=== PATIENT | female | born 1940 | race Caucasian/White ===

== ENCOUNTER → 2016-02-15 | Outpatient (CLI) | payer MEDICARE ==
--- NOTE | 2016-02-18 10:37 | MM ---
Reason for exam: additional evaluation requested from abnormal screening. Last mammogram was performed less than 1 month ago. History: Patient is postmenopausal and is nulliparous. Benign stereotactic core biopsy of the left breast, April 15, 2002. Excisional biopsy of the left breast, February 10, 1997. Core biopsy of the left breast. Lumpectomy of the left breast. Physical Findings: Nurse did not find any significant physical abnormalities on exam. MG 3D Work Up W/Cad RT ML, spot compression CC, and spot compression MLO view(s) were taken of the right breast. Prior study comparison: February 06, 2016, bilateral MG screening mammo w CAD. January 10, 2015, bilateral MG screening mammo w CAD. Finding #1: There is a 9 mm equal density (isodense), microlobulated oval mass in the upper outer quadrant of the right breast. Finding #2: There are typically benign calcifications in the right breast. These results were verbally communicated with the patient and result sheet given to the patient on 02/15/16. ASSESSMENT: Incomplete: need additional imaging evaluation, BI-RAD 0 RECOMMENDATION: Ultrasound of the right breast.
--- NOTE | 2016-02-18 10:39 | USB ---
Reason for exam: additional evaluation requested from abnormal screening. History: Patient is postmenopausal and is nulliparous. Benign stereotactic core biopsy of the left breast, April 15, 2002. Excisional biopsy of the left breast, February 10, 1997. Core biopsy of the left breast. Lumpectomy of the left breast. US Breast Workup Limited RT Right breast ultrasound demonstrates a 0.3 x 0.4 x 0.3cm irregular, hyperechoic lesion at 10 o'clock. These results were verbally communicated with the patient and result sheet given to the patient on 02/15/16. ASSESSMENT: Suspicious, BI-RAD 4 RECOMMENDATION: Stereotactic core biopsy of the right breast. Called Dr. Brownlee with mammographic findings and has scheduled an appointment for the patient for 02/19/16 at 9:[address] Posadas. PRELIMINARY REPORT CALLED AND FAXED TO DR. POSADAS ON 02/18/16 AT 300/TP.
== END | disposition home or self-care (01) ==
LOC: RADMAMWWP 13:35
PROVIDERS: ATTEND Obstetrics & Gynecology
DX: R92.2 Inconclusive mammogram (principal); R92.8 Other abnormal and inconclusive findings on diagnostic imaging of breast
CPT/HCPCS: 77051; 76642; G0206; G0279

== ENCOUNTER → 2016-02-25 | Day surgery (SDC) | payer MEDICARE ==
[~2016-02-25] MED LIST: ALPRAZolam 0.25 MG TAB ONE; BACITRACIN OINT 1 EACH PACKET TOPICAL ONE; LIDOCAINE 1% INJ 10MG/ML (20 ML MDV) ONE; SODIUM BICARB 4% 5 ML VIAL (0.48 MEQ/ML) ONE
--- NOTE | 2016-02-25 16:11 | MM ---
EXAMINATION TYPE: MG stereo VAD BX RT DATE OF EXAM: 02/25/2016 3:24 PM COMPARISON: NONE CLINICAL HISTORY: Previous abnormal mammogram TECHNIQUE: Stereotactic guided core biopsy of right breast. FINDINGS: The procedure of stereotactic guided core biopsy was explained to the patient. Benefits, alternatives, and risks were discussed. An informed consent was then obtained. The [facility] pathway for biopsy was chosen. Shortness pathway was lateral approach. Dr. Cleveland performed the procedure. A vacuum assisted biopsy device was used to obtain 4 core samples. The patient tolerated the procedure well without any immediate complication. The patient was kept in the radiology department for short stay after the procedure and then discharged home in stable condition. Mass appears to be identified in specimen mammogram. Post procedure mammogram was ordered and performed. Post biopsy mammogram shows the clip to appear in satisfactory position relative to the targeted area of concern on the preprocedure images. IMPRESSION: SUCCESSFUL, UNCOMPLICATED STEREOTACTIC GUIDED CORE BIOPSY OF AREA OF CONCERN IN THE right BREAST, FULL PATHOLOGY RESULTS TO FOLLOW. 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 Recommendation Surgical consult of the right breast. KRISTEL
== END ==
LOC: RADMAMWWP 13:04
PROVIDERS: ATTEND Surgery
DX: R92.8 Other abnormal and inconclusive findings on diagnostic imaging of breast (principal); D05.11 Intraductal carcinoma in situ of right breast; Z88.6 Allergy status to analgesic agent; Z88.0 Allergy status to penicillin; Z88.7 Allergy status to serum and vaccine
CPT/HCPCS: 88305; 19081; A4648; J2001

== ENCOUNTER 2016-04-04 06:29 | Day surgery (SDC) | payer MEDICARE ==
[2016-04-03 10:17] VITALS: BMI 24.4
--- NOTE | 2016-04-04 04:54 | P.GSHP ---
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 No swellings in the armpit or neck Last mammogram on 02/06/16 and 01/10/2015 Last breast US on 02/15/16 Prior breast bx - open left breast bx in 2007 and 1997 Menarche at age -12 Menopause at age- 51 Age at 3 st child - NA nulliparous OCP use - None Hormonal supplementation- Premarin 2 yrs Family history of breast cancer - None Family history of ovarian cancer -None - Review of Systems Comment: Additionally reports: Constitutional: No fever, chills or rigors. No weight loss or loss of appetite. HEENT: No difficulty with hearing, vision and swallowing. Lymphatic: No axillary, inguinal and cervical swellings. Endocrine: No thyroid disorders. Denies history of diabetes. Respiratory: No chest pain, shortness of breath, and cough. No hemoptysis. Cardiovascular: No palpitations, irregular HR Gastrointestinal: Denies heartburn. No change in bowel habits. No nausea or vomiting. Genitourinary: No increase in urinary frequency or urgency. No hematuria. Musculoskeletal: No back pain, joint stiffness or pain. Neurologic: No history of seizure disorder and headaches. Psychiatric: Denies depression or anxiety . No suicidal ideation. Hematologic: Denies any abnormal mucosal bleeding or easy bruising. Past Medical History Past Medical History: Cancer, Osteoarthritis (OA) Additional Past Medical History / Comment(s): breast cancer History of Any Multi-Drug Resistant Organisms: None Reported Past Surgical History: Breast Surgery, Tonsillectomy Additional Past Surgical History / Comment(s): left breast biopsy Past Anesthesia/Blood Transfusion Reactions: No Reported Reaction Past Psychological History: No Psychological Hx Reported Smoking Status: Never smoker Past Alcohol Use History: None Reported Past Drug Use History: None Reported - Past Family History Mother Family Medical History: No Reported History Medications and Allergies Home Medications Medication Instructions Recorded Confirmed Type Acetaminophen Tab [Tylenol Tab] 250 mg PO DIRECTED PRN 04/03/16 04/03/16 History Allergies Allergy/AdvReac Type Severity Reaction Status Date / Time adhesive tape Allergy red Verified 04/03/16 10:09 skin,itching Influenza Virus Vaccines Allergy Itching,tavares Verified 04/03/16 10:09 h naproxen [From Aleve] Allergy Itching Verified 04/03/16 10:09 Penicillins Allergy Itching Verified 04/03/16 10:09 Surgical - Exam Patient is a 75-year-old female. Breast: Inspection/Palpation: no erythema, induration, tenderness, skin changes , abnormal secretions, or distinct masses (well healed left breast bx scar) and normal nipple appearance; No axillary , cervical or supraclavicular lymphadenopathy. Abdomen: Auscultation/Inspection/Palpation: no tenderness, hepatomegaly, or splenomegaly and non-distended and normal bowel sounds. Hernia: none palpated. Assessment and Plan (1) Breast cancer, right Status: Acute Plan: Assessment / Plan 1. Invasive ductal ca and DCIS - right breast upper outer quadrant 10 o clock 2. Two surgical options discussed : breast conservation surgery(lumpectomy with radiation) and simple mastectomy . 3. Patient elected to undergo lumpectomy 4. Wire localization lumpectomy discussed . Possibility of re-excision of breast tissue in case of positive margins were discussed 5. [place] lymph node bx with blue dye and radioactive tracer with possibility of axillary lymph node dissection if sentinel lymph node is positive for malignancy 6. Risks,benefits, potential complications including bleeding, infection, paresthesia along inner arm, skin necrosis from methylene blue and lymphedema discussed. Avoid IV and blood draws in right arm. 7. Med and Rad Oncology consult - for further discussion regarding chemo, radiation and hormonal therapy 8. Schedule for right breast wire localization bx with sentinel lymph node and possible right axillary lymph node dissection.
[~2016-04-04 06:29] MED LIST changes: -ALPRAZolam 0.25 MG TAB ONE; -BACITRACIN OINT 1 EACH PACKET TOPICAL ONE; +DEXAMETHASONE SOD PHOSPHATE 10 MG/ML 1 ML VIAL IV ONE; +HEPARIN SODIUM,PORCINE 5,000 UNIT/ML 1 ML VIAL SQ ONE; +HYDROmorphone 1 MG/ML 1 ML SYRINGE IVP PRN; -LIDOCAINE 1% INJ 10MG/ML (20 ML MDV) ONE; +MIDAZOLAM 2 MG/2 ML VIAL IV PRN; +ONDANSETRON 4 MG/2 ML VIAL IVP ONE; -SODIUM BICARB 4% 5 ML VIAL (0.48 MEQ/ML) ONE; +ceFAZolin 2 GM in SODIUM CHLORIDE 0.9% 100 ML IVPB ONE
[2016-04-04] MEDS ORDERED: ALPRAZolam 0.25 MG TAB PO STA (06:43)
[2016-04-04 06:53] VITALS: RESP 16
[2016-04-04] MEDS ORDERED: LIDOCAINE 1% 20 ML VIAL (10MG/ML) FOR IV START INTRADERMA ONE (07:06)
[2016-04-04] MEDS: LACTATED RINGERS 1,000 ML IV SCH ×2 (07:06→10:12)
[2016-04-04] MEDS ORDERED: LIDOCAINE 1% INJ 10MG/ML (10 ML MDV) SQ ONE (07:42)
[2016-04-04] MEDS ORDERED: SODIUM BICARB 4% 5 ML VIAL (0.48 MEQ/ML) MISCELLANE ONE (07:42)
[2016-04-04] MEDS ORDERED: CLINDAMYCIN 900 MG in DEXTROSE 5% IN WATER 50 ML IVPB ONE ×2 (08:00)
--- NOTE | 2016-04-04 08:43 | NM ---
EXAMINATION TYPE: NM sentinel node injection DATE OF EXAM: 04/04/2016 8:16 AM COMPARISON: NONE HISTORY: RIGHT BREAST CANCER TECHNIQUE AND FINDINGS: The procedure of sentinel lymph node injection was explained to the patient. The benefits, alternatives, and risks were discussed. An informed consent was then obtained. Overlying skin is cleaned with sterile alcohol. Lidocaine buffered with bicarbonate was used as anes thetic into the skin and subcutaneous tissue surrounding the nipple. Following this, 543 uCi Tc 99m Filtered Sulfur Colloid was injected into 4 equivalent doses at 12, 3, 6, and 9:00 position surroundi ng the right nipple intradermally. The injection sites were massaged by nuclear design engineer for 10 minutes after injection. T he patient tolerated the procedure well without any immediate complication. The patient was kept in the radiology department for short stay after the procedure and then taken to surgery for surgical pr ocedure what is presumed intraoperative gamma probe will be used for sentinel lymph node detection. IMPRESSION: Right breast radiotracer injection for sentinel node localization as above.
[2016-04-04] MEDS ORDERED: METHYLENE BLUE 10 MG/ML 1 ML VIAL IV ONE ×2 (09:59→10:45)
[2016-04-04] MEDS ORDERED: SUCCINYLCHOLINE CHLORIDE 100 MG/5 ML SYR IV ONE ×2 (10:13)
[2016-04-04] MEDS ORDERED: PROPOFOL 10 MG/ML 20 ML VIAL IV ONE ×2 (10:13)
[2016-04-04] MEDS ORDERED: GLYCOPYRROLATE 0.2 MG/ML 2 ML VIAL ONE ×2 (10:13)
[2016-04-04] MEDS ORDERED: LIDOCAINE 1% INJ 10MG/ML (20 ML MDV) ONE ×2 (10:13)
[2016-04-04] MEDS ORDERED: fentaNYL (PF) 50 MCG/ML 2 ML AMP ONE ×2 (10:13)
[2016-04-04] MEDS ORDERED: MIDAZOLAM 2 MG/2 ML VIAL ONE ×2 (10:13)
[2016-04-04] MEDS ORDERED: SODIUM CHLORIDE 0.9% 50 ML with CLINDAMYCIN 600 MG IV ONE ×2 (10:38)
[2016-04-04] MEDS ORDERED: BUPIVACAIN-EPI 0.25%-1:200,000 30 ML VIAL SQ ONE ×2 (10:53)
[2016-04-04] MEDS ORDERED: LACTATED RINGERS 1,000 ML IV ONE (10:54)
--- NOTE | 2016-04-04 12:32 | P.OP ---
Date of Procedure: 04/04/16 Preoperative Diagnosis: Right breast cancer Postoperative Diagnosis: Same Procedure(s) Performed: Right breast partial mastectomy with preoperative wire placement by radiology. Right sentinel lymph node biopsy Local tissue transfer and closure using oncoplastic technique Anesthesia: BRITTANY, local Surgeon: Mariya Posadas Estimated Blood Loss (ml): 20 IV fluids (ml): 800 Pathology: other Condition: other (ASA3) Disposition: PACU Indications for Procedure: 75 years old female with abnormal mammogram. Status post stereotactic biopsy which showed right breast DCIS and invasive cancer. Prior history of lumpectomy left breast for LCIS in 1997.Informed consent obtained and patient elected to undergo lumpectomy with wire localization with sentinel lymph node biopsy and possible axillary lymph node dissection Operative Findings: [place] lymph node 3 negative for malignancy Description of Procedure: The patient underwent wire localization of right breast abnormality at 9-10 o' clock position and injection of radioisotope in the radiology department. She was brought to the operating room and placed in supine position with both arms out. 5 mL of methylene blue was injected in the subdermal plane at 4 quadrants around the areola and the breast was massaged for 5 minutes . General anesthesia with endotracheal intubation was performed as per anesthesia team. No muscle relaxants were given. Chlorhexidine was used to prep the left breast and left axilla taking care not to dislodge the wire exiting from the left breast. Sterile drapes were applied. A timeout was performed to verify correct patient and correct procedure. Patient was confirmed to receive perioperative IV antibiotics, heparin 5000 units subcutaneous injection for the VTE prophylaxis and bilateral SCDs were placed. A hand-held gamma probe was used to detect signals overlying the breast. There was minimal signal in the axilla After entering the clavicopectoral fascia, a blue node was identified. The node was excised in its entirety. Additional 2 blue nodes were also identified and sent as sentinel lymph node for frozen section. [place] lymph node was negative for malignancy. A 3 cm skin elliptical incision was made overlying the guidewire along the right breast. The wire exited the skin along the lateral border at 9 o'clock position. Dissection was then taken down circumferentially using Bovie electrocautery taking care to include the entire localizing wire and a wide margin of grossly normal tissue. The breast tissue was noted to be very dense along the superior margin. The specimen was excised up to the chest wall The specimen and the entire localizing wire were removed. Specimen was oriented. It was colored as per protocol. Additional superior margin was also sent. The specimen was sent to radiology which confirmed that the wire and clip were within the excised specimen. Surgical clips were placed along the cavity service a marker for radiation therapy. The cavity was checked for hemostasis. The resulting cavity measured 7.5 cm from medial to lateral, 6.2 cm from superior to inferior and 2.4 cm from anterior to posterior. The remainder of the breast tissue was mobilized along the pectoral muscle and in the subcutaneous plane until the breast tissue could be approximated. Local tissue transfer technique was applied to close the resulting defect 7.5 cm x 6.2 cm x 2.4 cm The cavity was then closed in layers using 3-0 interrupted Vicryl and 4-0 running Monocryl subcuticular sutures. Dermabond was applied. Sponge, instrument and needle count were correct 2. Patient tolerated the procedure well and was taken to postanesthesia care unit in stable condition Final Pathologic Diagnosis A. SENTINEL LYMPH NODE #1, BIOPSY: LYMPH NODE NEGATIVE FOR METASTASIS. CK7 AND GLORIA IMMUNOPEROXIDASE STAINS ARE CONFIRMATORY (CONTROLS APPROPRIATE). B. SENTINEL LYMPH NODE #2, BIOPSY: TWO LYMPH NODES NEGATIVE FOR METASTASIS. CK7 AND GLORIA IMMUNOPEROXIDASE STAINS ARE CONFIRMATORY (CONTROLS APPROPRIATE). C. SENTINEL LYMPH NODE #3, BIOPSY: LYMPH NODE NEGATIVE FOR METASTASIS. CK7 AND GLORIA IMMUNOPEROXIDASE STAINS ARE CONFIRMATORY (CONTROLS APPROPRIATE). D. BREAST, RIGHT, LUMPECTOMY: D. 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 BIOPSY SITE CHANGE. FIBROCYSTIC CHANGE (STROMAL FIBROSIS, CYST FORMATION, APOCRINE METAPLASIA, FOCAL ADENOSIS AND DUCT HYPERPLASIA). FEATURES OF DUCT ECTASIA. ADDITIONAL SUPERIOR MARGIN TISSUE NEGATIVE FOR CARCINOMA. BENIGN SKIN. Comment SURGICAL PATHOLOGY CANCER CASE SUMMARY - INVASIVE CARCINOMA OF THE BREAST Specimen Identification Procedure: Excision with image guided localization. Lymph Node Sampling: [place] lymph nodes. Specimen Laterality: Right. Tumor Size - Size of Largest Residual Invasive Carcinoma: Greatest dimension of largest residual focus of invasion greater than 1 mm: 6.5 mm, see comment. Histologic Type of Invasive Carcinoma: Invasive mammary carcinoma of no special type (ductal, not otherwise specified). Histologic Grade: Rupert Histologic Score Glandular (Acinar)/Tubular Differentiation: 2. Nuclear Pleomorphism: 3. Mitotic Rate: 1. Overall Grade: Grade 2 (score of 6). Tumor Focality: Single focus of invasive carcinoma. Ductal Carcinoma In Situ (DCIS) : Present, negative for extensive intraductal component (EIC). Nuclear Grade: Grade III (high). Necrosis: Present, central (expansive "comedo" necrosis). Margins: Invasive carcinoma: Margins uninvolved by invasive carcinoma. Distance from closest margin: 4.5 mm. Specify margin: Green/blue inked margin (anterior/inferior). DCIS: Margins uninvolved by DCIS. Distance from closest margin: 4 mm. Specify margin: Green/blue margin (inferior/anterior margin). Lymph Nodes Total number of nodes examined (sentinel and nonsentinel): 4. Number of sentinel nodes examined: 4. Pathologic Staging Primary Tumor: At least pT1b (tumor greater than 5 mm but less than or equal to 10 mm in greatest dimension) , see comment. Regional Lymph Nodes: Modifier: sn (only sentinel nodes evaluated). pN0(i-) (No regional lymph node metastasis histologically, negative IHC).
--- NOTE | 2016-04-04 13:01 | MM ---
EXAMINATION TYPE: MG pre op needle loc RT, MG surgical specimen RT DATE OF EXAM: 04/04/2016 8:21 AM COMPARISON: NONE CLINICAL HISTORY: Breast CA TECHNIQUE: Needle localization with wire placement and surgical excision of area of concern in the right breast. FINDINGS: The procedure of needle localization with wire placement and than surgical excision was explained to the patient. Benefits, alternatives, and risks were discussed. An informed consent was then obtained. Microclip marker was localized mammographically. The shortest pathway for procedure was chosen. The overlying skin was prepped and draped in usual sterile fashion. Lidocaine buffered with bicarbonate was used as anesthetic into the skin and subcutaneous tissue up to the level of area of concern. A 5 cm needle was used. Subsequent 90 degrees mammogram show the needle to be in satisfactory position relative to the targeted area. At this point, wire was placed and the needle was withdrawn. The wire was fixed to patient's skin. Images were marked for surgeon. The patient tolerated the procedure well without any immediate complication. The patient was kept in the radiology department for short stay after the procedure and then taken to surgery for surgical excision. Microclip and wire are identified in specimen mammogram. The patient was kept in hospital for short stay after the procedure and then discharged home in stable condition. IMPRESSION: Successful, uncomplicated needle localization with wire placement and surgical excision of suspicious group of calcifications in the right breast , full pathology results to follow. Pathology Results: Malignant A. SENTINEL LYMPH NODE #1, BIOPSY: LYMPH NODE NEGATIVE FOR METASTASIS. CK7 AND GLORIA IMMUNOPEROXIDASE STAINS ARE CONFIRMATORY (CONTROLS APPROPRIATE). B. SENTINEL LYMPH NODE #2, BIOPSY: TWO LYMPH NODES NEGATIVE FOR METASTASIS. CK7 AND GLORIA IMMUNOPEROXIDASE STAINS ARE CONFIRMATORY (CONTROLS APPROPRIATE). C. SENTINEL LYMPH NODE #3, BIOPSY: LYMPH NODE NEGATIVE FOR METASTASIS. CK7 AND GLORIA IMMUNOPEROXIDASE STAINS ARE CONFIRMATORY ( CONTROLS APPROPRIATE). D. BREAST, RIGHT, LUMPECTOMY: PENDING FIXATION, SEE ADDENDUM/FINAL DIAGNOSIS. ADDENDUM REPORT D. 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 BIOPSY SITE CHANGE. FIBROCYSTIC CHANGE ( STROMAL FIBROSIS, CYST FORMATION, APOCRINE METAPLASIA, FOCAL ADENOSIS AND DUCT HYPERPLASIA). FEATURES FOR DUCT ECTASIA. ADDITIONAL SUPERIOR MARGIN TISSUE NEGATIVE FOR CARCINOMA. BENIGN SKIN. Recommendation Surgical consult of the right breast. [facility]
[2016-04-04 13:12] VITALS: TEMP 976
[2016-04-04 13:59] VITALS: PULSE 60
[2016-04-04] MEDS ORDERED: HYDROcodone/APAP 5-325MG 1 EACH TAB PO ONE (13:59)
[2016-04-04 14:27] VITALS: BP 176/76
== END 2016-04-04 14:48 | disposition home or self-care (01) ==
LOC: OR 06:29
PROVIDERS: ATTEND Surgery
DX: D05.11 Intraductal carcinoma in situ of right breast (principal); N60.31 Fibrosclerosis of right breast; N60.81 Other benign mammary dysplasias of right breast; N60.01 Solitary cyst of right breast; N60.21 Fibroadenosis of right breast; N60.91 Unspecified benign mammary dysplasia of right breast; R92.8 Other abnormal and inconclusive findings on diagnostic imaging of breast; Z88.6 Allergy status to analgesic agent; Z88.0 Allergy status to penicillin; Z88.7 Allergy status to serum and vaccine
CPT/HCPCS: 88342; 88331; 88307; 88341; 76098; 19281; 38792; 19301; 38500; 14000; A9541; J2250; J1644; J1100; J2405; J2001 ×2; J3010; J0330; J2704

== ENCOUNTER → 2016-08-11 | Outpatient (CLI) | payer MEDICARE ==
--- NOTE | 2016-08-11 11:40 | BD ---
EXAMINATION TYPE: MG DEXA axial skeleton. DATE OF EXAM: 08/11/2016 CLINICAL HISTORY: 75-year-old female history of breast cancer, postmenopausal. Height: 60 inches Weight: 117 FRAX RISK QUESTIONS: Alcohol (3 or more units per day): no Family History (Parent hip fracture): no Glucocorticoids (More than 3mos): no (Ex: prednisone, prednisolone, methylprednisolone, dexamethasone, and hydrocortisone). History of Fracture in Adulthood: no Secondary Osteoporosis: 1. Type 1 Diabetes: no 2. Hyperthyroidism: no 3. Menopause before 45: no 4. Malnutrition: no 5. Chronic liver disease: no Rheumatoid Arthritis: no Current Tobacco Use: no RISK FACTORS HISTORY OF: History of Wrist Fracture: yes When: about age 11 Surgery to Spine/Hip(right/left)/Wrist (right/left): no Family History of Osteoporosis: no Active: yes Diet low in dairy products/other sources of calcium: at least one serving a day Postmenopausal woman: yes Take estrogen and/or progesterone medications: no Lost more than 2 inches in height since high school: no Frequent falls: no Poor Health: recent breast CA Hyperparathyroidism: no Adrenal Insufficiency: no MEDICATIONS: Prednisone or other steroids: no Thyroid Medications: no Osteoporosis Medications: no Additional Medications: LETROZOLE, calcium & multivitamin Additional History: breast CA recently diagnosed-radiation EXAM MEASUREMENTS: Bone mineral densitometry was performed using the [employer] System. Bone mineral density as measured about the Lumbar spine is: ----- L1-L4(G/cm2): 1.038 T Score Values are as follows: ----- L2: -1.3 ----- L3: -0.6 ----- L4: -1.4 ----- L1-L4: -1.2 Bone mineral density has: increased 3.9% since study of: 03/14/2002 Bone mineral density about the R hip (g/cm2): 0.862 Bone mineral density about the L hip (g/cm2): 0.830 T Score values are as follows: -----R Neck: -1.3 -----L Neck: -1.5 -----R Total: -1.7 -----L Total: -1.4 Bone mineral density has: decreased -4.2% since study of: 03/14/2002 IMPRESSION: Osteopenia as indicated by T score values in the lumbar spine and both hips. There is slightly increased risk of fracture and the patient may be considered for treatment. Re-Screen 2-5 years. NOTE: T-SCORE=SD OF THE YOUNG ADULT MEAN. Tech:
== END | disposition home or self-care (01) ==
LOC: RADBDWWP 09:48
PROVIDERS: ATTEND Internal Medicine Hematology & Oncology
DX: M85.851 Other specified disorders of bone density and structure, right thigh (principal); C50.411 Malignant neoplasm of upper-outer quadrant of right female breast; M85.852 Other specified disorders of bone density and structure, left thigh; M85.88 Other specified disorders of bone density and structure, other site; N95.1 Menopausal and female climacteric states; Z79.890 Hormone replacement therapy
CPT/HCPCS: 77080

== ENCOUNTER → 2016-09-23 | Outpatient (CLI) | payer MEDICARE ==
--- NOTE | 2016-09-23 14:16 | MM ---
Reason for exam: follow-up at short interval from prior study. Last mammogram was performed 7 months ago. History: Patient is postmenopausal, has history of breast cancer at age 75, and is nulliparous. Malignant MG pre op needle loc RT of the right breast, April 04, 2016. Malignant MG stereo VAD BX RT of the right breast, February 25, 2016. Radiation therapy of the right breast, 2017. Benign stereotactic core biopsy of the left breast, April 15, 2002. Excisional biopsy of the left breast, February 10, 1997. Core biopsy of the left breast. Lumpectomy of the left breast. Physical Findings: Nurse did not find any significant physical abnormalities on exam. MG 3D Diag Mammo W/Cad CONRADO Bilateral CC and MLO view(s) were taken. Prior study comparison: February 15, 2016, right breast MG 3d work up w/cad RT. February 06, 2016, bilateral MG screening mammo w CAD. There are scattered fibroglandular densities. Post lumpectomy and radiation therapy changes in the right breast. These results were verbally communicated with the patient and result sheet given to the patient on 09/23/16. ASSESSMENT: Benign, BI-RAD 2 RECOMMENDATION: Follow-up diagnostic mammogram of both breasts in 6 months.
== END | disposition home or self-care (01) ==
LOC: RADMAMWWP 12:58
PROVIDERS: ATTEND Radiology Radiation Oncology
DX: Z85.3 Personal history of malignant neoplasm of breast (principal)
CPT/HCPCS: G0204; G0279

== ENCOUNTER → 2017-03-31 | Outpatient (CLI) | payer MEDICARE ==
--- NOTE | 2017-03-31 14:56 | MM ---
Reason for exam: follow-up at short interval from prior study. Last mammogram was performed 6 months ago. History: Patient is postmenopausal, has history of breast cancer at age 75, and is nulliparous. Malignant MG pre op needle loc RT of the right breast, April 04, 2016. Malignant MG stereo VAD BX RT of the right breast, February 25, 2016. Radiation therapy of the right breast, 2017. Benign stereotactic core biopsy of the left breast, April 15, 2002. Excisional biopsy of the left breast, February 10, 1997. Core biopsy of the left breast. Lumpectomy of the left breast. Physical Findings: Nurse did not find any significant physical abnormalities on exam. MG 3D Diag Mammo W/Cad CONRADO Bilateral CC and MLO view(s) were taken. Prior study comparison: September 23, 2016, bilateral MG 3d diag mammo w/cad CONRADO. February 15, 2016, right breast MG 3d work up w/cad RT. There are scattered fibroglandular densities. Previous mammotome biopsy in the left breast. Post surgical and post therapy changes right breast. Subareolar nodularity on the right breast seems to have been present back to 2013. Scattered vascular calcifications on the right. A 6 month follow up can reassess the post therapy changes and nodularity. These results were verbally communicated with the patient and result sheet given to the patient on 03/31/17. ASSESSMENT: Probably benign, BI-RAD 3 RECOMMENDATION: Follow-up diagnostic mammogram of the right breast in 6 months.
== END | disposition home or self-care (01) ==
LOC: RADMAMWWP 12:45
PROVIDERS: ATTEND Radiology Radiation Oncology
DX: Z08 Encounter for follow-up examination after completed treatment for malignant neoplasm (principal); Z85.3 Personal history of malignant neoplasm of breast; Z78.0 Asymptomatic menopausal state; Z17.0 Estrogen receptor positive status [ER+]
CPT/HCPCS: 77066; G0279

== ENCOUNTER → 2017-08-13 | Outpatient (CLI) | payer MEDICARE ==
--- NOTE | 2017-08-13 11:10 | BD ---
EXAMINATION TYPE: Axial Bone Density DATE OF EXAM: 08/13/2017 COMPARISON: NONE CLINICAL HISTORY: 76-year-old female osteopenia, postmenopausal screening, history of breast cancer Height: 4 FT 10 IN Weight: 115 FRAX RISK QUESTIONS: RISK FACTORS HISTORY OF: Active: YES Postmenopausal woman: AGE 48-49 Take estrogen and/or progesterone medications: TOOK APPROX ONE YEAR Lost more than 2 inches in height since high school: YES MEDICATIONS: Additional Medications: LETROZOLE Additional History: BREAST CANCER WITH RADIATION EXAM MEASUREMENTS: Bone mineral densitometry was performed using the [employer]. Bone mineral density as measured about the Lumbar spine is: ----- L1-L4(G/cm2): 1.031 T Score Values are as follows: ----- L2: -1.5 ----- L3: -0.7 ----- L4: -1.1 ----- L1-L4: -1.2 Bone mineral density has: DECREASED -0.1 % since study of: 2016 Bone mineral density about the R hip (g/cm2): 0.894 Bone mineral density about the L hip (g/cm2): 0.854 T Score values are as follows: -----R Neck: -1.0 -----L Neck: -1.3 -----R Total: -1.8 -----L Total: -1.7 Bone mineral density has: DECREASED -3.1 % since study of: 2016 IMPRESSION: Osteopenia (T Score between -2.5 and -1). There is slightly increased risk of fracture and the patient may be considered for treatment. Re-Screen 2-5 years. NOTE: T-SCORE=SD OF THE YOUNG ADULT MEAN.
== END | disposition home or self-care (01) ==
LOC: RADBDWWP 10:35
PROVIDERS: ATTEND Internal Medicine Hematology & Oncology
DX: C50.411 Malignant neoplasm of upper-outer quadrant of right female breast (principal); M85.80 Other specified disorders of bone density and structure, unspecified site
CPT/HCPCS: 77080

== ENCOUNTER → 2017-10-06 | Outpatient (CLI) | payer MEDICARE ==
--- NOTE | 2017-10-07 10:37 | MM ---
Reason for exam: follow-up at short interval from prior study. Last mammogram was performed 6 months ago. History: Patient is postmenopausal, has history of breast cancer at age 75, and is nulliparous. Malignant MG pre op needle loc RT of the right breast, April 04, 2016. Malignant MG stereo VAD BX RT of the right breast, February 25, 2016. Radiation therapy of the right breast, 2017. Benign stereotactic core biopsy of the left breast, April 15, 2002. Excisional biopsy of the left breast, February 10, 1997. Core biopsy of the left breast. Lumpectomy of the left breast. Took estrogen for 1 year. Taking antineoplastic for 1 year beginning at age 75. Physical Findings: Nurse did not find any significant physical abnormalities on exam. MG 3D Diag Mammo W/Cad CONRADO Bilateral CC and MLO view(s) were taken. Prior study comparison: March 31, 2017, bilateral MG 3d diag mammo w/cad [facility]O. September 23, 2016, bilateral MG 3d diag mammo w/cad [facility]. There are scattered fibroglandular densities. Previous mammotome biopsy in the left breast. Post surgical and post therapy changes right breast. The right subareolar nodularity is no longer seen. Large area of fat necrosis redemonstrated right upper outer quadrant. No significant new findings when compared with previous films. These results were verbally communicated with the patient and result sheet given to the patient on 10/06/17. ASSESSMENT: Benign, BI-RAD 2 RECOMMENDATION: Follow-up diagnostic mammogram of both breasts in 1 year.
== END | disposition home or self-care (01) ==
LOC: RADMAMWWP 10:11
PROVIDERS: ATTEND Radiology Radiation Oncology
DX: Z08 Encounter for follow-up examination after completed treatment for malignant neoplasm (principal); Z85.3 Personal history of malignant neoplasm of breast
CPT/HCPCS: 77066; G0279; 77062

== ENCOUNTER → 2018-10-08 | Outpatient (CLI) | payer MEDICARE ==
--- NOTE | 2018-10-08 12:10 | MM ---
Reason for exam: additional evaluation requested from prior study. Last mammogram was performed 1 year ago. History: Patient is postmenopausal, has history of breast cancer at age 75, and is nulliparous. Malignant MG pre op needle loc RT of the right breast, April 04, 2016. Malignant MG stereo VAD BX RT of the right breast, February 25, 2016. Radiation therapy of the right breast, 2017. Benign stereotactic core biopsy of the left breast, April 15, 2002. Excisional biopsy of the left breast, February 10, 1997. Core biopsy of the left breast. Lumpectomy of the left breast. Took estrogen for 1 year. Taking antineoplastic for 1 year beginning at age 75. Physical Findings: Nurse did not find any significant physical abnormalities on exam. MG 3D Diag Mammo W/Cad CONRADO Bilateral CC and MLO view(s) were taken. Prior study comparison: October 06, 2017, bilateral MG 3d diag mammo w/cad [facility]. March 31, 2017, bilateral MG 3d diag mammo w/cad [facility]. There are scattered fibroglandular densities. Previous mammotome biopsy in the left breast. Post surgical and post therapy changes redemonstrated right breast. Progressive benign fat necrosis calcifications. No significant new findings when compared with previous films. These results were verbally communicated with the patient and result sheet given to the patient on 10/08/18. ASSESSMENT: Benign, BI-RAD 2 RECOMMENDATION: Follow-up diagnostic mammogram of both breasts in 1 year.
== END | disposition home or self-care (01) ==
LOC: RADMAMWWP 10:52
PROVIDERS: ATTEND Radiology Radiation Oncology
DX: C50.411 Malignant neoplasm of upper-outer quadrant of right female breast (principal); Z17.0 Estrogen receptor positive status [ER+]; Z98.890 Other specified postprocedural states
CPT/HCPCS: 77066; G0279; 77062

== ENCOUNTER → 2019-08-15 | Outpatient (CLI) | payer MEDICARE ==
--- NOTE | 2019-08-16 16:25 | BD ---
EXAMINATION TYPE: Axial Bone Density DATE OF EXAM: 08/15/2019 COMPARISON: 08/13/2017 CLINICAL HISTORY: Height: 58.5 IN Weight: 117 LBS RISK FACTORS HISTORY OF: History of Wrist Fracture: LEFT When: AGE 11 Active: YES Diet low in dairy products/other sources of calcium: YES Postmenopausal woman: AGE 51 Take estrogen and/or progesterone medications: NOT NOW How long: AGE [age] Lost more than 2 inches in height since high school: YES 2 02/10" MEDICATIONS: Additional Medications: CALCIUM, VIT D, LETROZOLE, Additional History: BREAST CANCER WITH RADIATION EXAM MEASUREMENTS: Bone mineral densitometry was performed using the [employer]. Bone mineral density as measured about the Lumbar spine is: ----- L1-L4(G/cm2): 1.040 T Score Values are as follows: ----- L2: -1.5 ----- L3: -0.8 ----- L4: -1.1 ----- L1-L4: -1.2 Bone mineral density has: Decreased -0.2% since study of: 08/13/2017 Bone mineral density about the R hip (g/cm2): 0.812 Bone mineral density about the L hip (g/cm2): 0.800 T Score values are as follows: -----R Neck: -1.6 -----L Neck: -1.7 -----R Total: -2.0 -----L Total: -1.7 Bone mineral density has: Decreased -2.4% since study of: 08/13/2017 IMPRESSION: Osteopenia (T Score between -2.5 and -1). There is slightly increased risk of fracture and the patient may be considered for treatment. Re-Screen 2-5 years. NOTE: T-SCORE=SD OF THE YOUNG ADULT MEAN.
== END | disposition home or self-care (01) ==
LOC: RADBDWWP 14:54
PROVIDERS: ATTEND Internal Medicine Hematology & Oncology
DX: M85.80 Other specified disorders of bone density and structure, unspecified site (principal); N95.1 Menopausal and female climacteric states
CPT/HCPCS: 77080

== ENCOUNTER → 2019-10-10 | Outpatient (CLI) | payer MEDICARE ==
--- NOTE | 2019-10-10 13:57 | MM ---
Reason for exam: additional evaluation requested from prior study. Last mammogram was performed 1 year ago. History: Patient is postmenopausal, has history of breast cancer at age 75, and is nulliparous. Malignant MG pre op needle loc RT of the right breast, April 04, 2016. Malignant MG stereo VAD BX RT of the right breast, February 25, 2016. Radiation therapy of the right breast, 2017. Benign stereotactic core biopsy of the left breast, April 15, 2002. Excisional biopsy of the left breast, February 10, 1997. Core biopsy of the left breast. Lumpectomy of the left breast. Took estrogen for 1 year. Taking antineoplastic beginning at age 75. Physical Findings: Nurse Summary: 2cm nodule in the right breast at 10 o'clock (nurse dw). MG 3D Diag Mammo W/Cad CONRADO Bilateral CC and MLO view(s) were taken. Prior study comparison: October 08, 2018, bilateral MG 3d diag mammo w/cad [facility]. October 06, 2017, bilateral MG 3d diag mammo w/cad [facility]. The breast tissue is heterogeneously dense. This may lower the sensitivity of mammography. Previous mammotome biopsy in the left breast. Post biopsy changes right upper outer quadrant. These results were verbally communicated with the patient and result sheet given to the patient on 10/10/19. ASSESSMENT: Benign, BI-RAD 2 RECOMMENDATION: Follow-up diagnostic mammogram of both breasts in 1 year.
== END | disposition home or self-care (01) ==
LOC: RADMAMWWP 12:55
PROVIDERS: ATTEND Radiology Radiation Oncology
DX: C50.411 Malignant neoplasm of upper-outer quadrant of right female breast (principal); Z98.890 Other specified postprocedural states; Z17.0 Estrogen receptor positive status [ER+]
CPT/HCPCS: 77066; G0279; 77062

== ENCOUNTER → 2020-10-05 | Outpatient (CLI) | payer MEDICARE ==
--- NOTE | 2020-10-08 09:06 | MM ---
Reason for exam: additional evaluation requested from prior study. Last mammogram was performed 1 year ago. History: Patient is postmenopausal, has history of breast cancer at age 75, and is nulliparous. Malignant MG pre op needle loc RT of the right breast, April 04, 2016. Malignant MG stereo VAD BX RT of the right breast, February 25, 2016. Radiation therapy of the right breast, 2017. Benign stereotactic core biopsy of the left breast, April 15, 2002. Excisional biopsy of the left breast, February 10, 1997. Core biopsy of the left breast. Lumpectomy of the left breast. Took estrogen for 1 year. Took antineoplastic for 4 years beginning at age 75. Physical Findings: Nurse did not find any significant physical abnormalities on exam. MG 3D Diag Mammo W/Cad [facility]RADO Bilateral CC and MLO view(s) were taken. Prior study comparison: October 10, 2019, bilateral MG 3d diag mammo w/cad [facility]. October 08, 2018, bilateral MG 3d diag mammo w/cad [facility]. October 06, 2017, bilateral MG 3d diag mammo w/cad [facility]. No significant new findings when compared with previous films. These results were verbally communicated with the patient and result sheet given to the patient on 10/05/20. ASSESSMENT: Benign, BI-RAD 2 RECOMMENDATION: Follow-up diagnostic mammogram of both breasts in 1 year.
== END | disposition home or self-care (01) ==
LOC: RADMAMWWP 10:56
PROVIDERS: ATTEND Radiology Radiation Oncology
DX: R92.8 Other abnormal and inconclusive findings on diagnostic imaging of breast (principal); Z78.0 Asymptomatic menopausal state; Z85.3 Personal history of malignant neoplasm of breast; Z79.818 Long term (current) use of other agents affecting estrogen receptors and estrogen levels
CPT/HCPCS: 77066; G0279; 77062

== ENCOUNTER → 2021-09-16 | Outpatient (CLI) | payer MEDICARE ==
--- NOTE | 2021-09-16 16:32 | BD ---
EXAMINATION TYPE: Axial Bone Density DATE OF EXAM: 09/16/2021 COMPARISON: NONE CLINICAL HISTORY: 80 year old Female. ICD-10 CODE: Z79.890 POST MENOPAUSAL WITH HRT Height: 60 Weight: 116.5 FRAX RISK QUESTIONS: Alcohol (3 or more units per day): no Family History (Parent hip fracture): no Glucocorticoids (More than 3mos): no (Ex: prednisone, prednisolone, methylprednisolone, dexamethasone, and hydrocortisone). History of Fracture in Adulthood: no Secondary Osteoporosis: 1. Type 1 Diabetes: no 2. Hyperthyroidism: no 3. Menopause before 45: no 4. Malnutrition: no 5. Chronic liver disease: no Rheumatoid Arthritis: no Current Tobacco Use: no RISK FACTORS HISTORY OF: History of Wrist Fracture: When: Surgery to Spine/Hip(right/left)/Wrist (right/left): no Family History of Osteoporosis: no Active: yes Diet low in dairy products/other sources of calcium: yes Postmenopausal woman: yes Lost more than 2 inches in height since high school: no MEDICATIONS: Additional History: EXAM MEASUREMENTS: Bone mineral densitometry was performed using the [employer]. Bone mineral density as measured about the Lumbar spine is: ----- L1-L4(G/cm2): 1.028 T Score Values are as follows: ----- L1: -1.7 ----- L2: -1.8 ----- L3: -0.7 ----- L4: -1.3 ----- L1-L4: -1.3 Bone mineral density has: decreased -1.6 % since study of: 08.13.2017 Bone mineral density about the R hip (g/cm2): 0.845 Bone mineral density about the L hip (g/cm2): 0.823 T Score values are as follows: -----R Neck: -1.4 -----L Neck: -1.5 -----R Total: -2.2 -----L Total: -2.0 Bone mineral density has: decreased -6.2 % since study of: 08.13.2017 FRAX%s: The graph provided illustrates a 9.6% chance for a major osteoporotic fx and a 2.9% chance fo r the hips probability for fx in 10 years time. IMPRESSION: Osteopenia (T Score between -2.5 and -1). There is slightly increased risk of fracture and the patient may be considered for treatment. Re-Screen 2-5 years. NOTE: T-SCORE=SD OF THE YOUNG ADULT MEAN.
== END | disposition home or self-care (01) ==
LOC: RADBDWWP 09:51
PROVIDERS: ATTEND Internal Medicine Hematology & Oncology
DX: M85.89 Other specified disorders of bone density and structure, multiple sites (principal); Z79.890 Hormone replacement therapy
CPT/HCPCS: 77080

== ENCOUNTER → 2021-10-07 | Outpatient (CLI) | payer MEDICARE ==
--- NOTE | 2021-10-07 09:24 | MM ---
Reason for Exam: Additional evaluation requested from prior study. Last screening mammogram was performed 12 month(s) ago. Patient History: Menarche at age 12. Patient has no children. Postmenopausal. Breast cancer, right, age 75. Previous LCIS pathology result at age 56. Previous chest radiation therapy at age 75. Patient used Estrogen for 1 year. Core Biopsy on the Left side. Lumpectomy on the Left side. 04/04/2016, Malignant Core Biopsy on the right side. 02/25/2016, Malignant Core Biopsy on the right side. 04/15/2002, Benign Stereotactic Core Biopsy on the left side. 02/10/1997, High risk Excisional Biopsy on the left side. 2016, Radiation Therapy on the right side. Prior Study Comparison: 05/08/1994 Screening Mammogram, Unknown. 10/25/2013 Bilateral Screening Mammogram, [facility]. 01/10/2015 Bilateral Screening Mammogram, [facility]. 02/15/2016 Right Diagnostic Mammogram, [facility]. 02/15/2016 Right Diagnostic Ultrasound, [facility]. 09/23/2016 Bilateral Diagnostic Mammogram, [facility]. 03/31/2017 Bilateral Diagnostic Mammogram, [facility]. 10/06/2017 Bilateral Diagnostic Mammogram, [facility]. 10/08/2018 Bilateral Diagnostic Mammogram, [facility]. 10/10/2019 Bilateral Diagnostic Mammogram, [facility]. 10/05/2020 Bilateral Diagnostic Mammogram, [facility]. Tissue Density: The breast tissue is almost entirely fat. Analyzed By CAD. Overall Assessment: Benign, BI-RAD 2 Management: Diagnostic Mammogram of both breasts in 1 year. Electronically signed and approved by: Cuco Patel DO
== END | disposition home or self-care (01) ==
LOC: RADMAMWWP 08:53
PROVIDERS: ATTEND Radiology Radiation Oncology
DX: C50.411 Malignant neoplasm of upper-outer quadrant of right female breast (principal); Z78.0 Asymptomatic menopausal state
CPT/HCPCS: 77066; G0279; 77062

== ENCOUNTER → 2022-09-26 | Outpatient (CLI) | payer MEDICARE | END | disposition home or self-care (01) | LOC: LABWHC1 13:58 | PROVIDERS: ATTEND Orthopaedic Surgery | DX: Z01.812 Encounter for preprocedural laboratory examination (principal); M16.11 Unilateral primary osteoarthritis, right hip; Z22.322 Carrier or suspected carrier of Methicillin resistant Staphylococcus aureus | CPT/HCPCS: 87070 ==

== ENCOUNTER → 2022-10-03 | Outpatient (CLI) | payer MEDICARE | END | disposition home or self-care (01) | LOC: LABWHC1 10:25 | PROVIDERS: ATTEND Internal Medicine Interventional Cardiology | DX: I48.0 Paroxysmal atrial fibrillation (principal) | CPT/HCPCS: 36415; 84443 ==

== ENCOUNTER → 2022-10-28 | Outpatient (CLI) | payer MEDICARE ==
--- NOTE | 2022-10-29 09:33 | CA ---
Transthoracic Echo Report Name: Gertrude Castellano Age: 82 Gender: F : 1940 Exam Date: 10/28/2022 15:30 Exam Location: [facility] Ht (in): 60 Wt (lb): 113 Ordering Physician: Moises Gonzales MD ([id number]) Attending/Referring Phys: Manager Trade Lashon Monae RDCS Procedure CPT: Indications: I48.0 PAROXYSMAL ATRIAL FIBRILLATION Cardiac Hx: Technical Quality: Fair Contrast 1: Total Dose (mL): Contrast 2: Total Dose (mL): MEASUREMENTS (Male / Female) Normal Values 2D ECHO LV Diastolic Diameter PLAX 3.8 cm 4.2 - 5.9 / 3.9 - 5.3 cm LV Systolic Diameter PLAX 2.5 cm IVS Diastolic Thickness 0.8 cm 0.6 - 1.0 / 0.6 - 0.9 cm LVPW Diastolic Thickness 1.0 cm 0.6 - 1.0 / 0.6 - 0.9 cm LV Relative Wall Thickness 0.5 RV Internal Dim ED PLAX 2.8 cm LA Volume 44.9 cm??? 18 - 58 / 22 - 52 cm??? M-MODE Aortic Root Diameter MM 2.0 cm LA Systolic Diameter MM 3.9 cm LA Ao Ratio MM 1.9 AV Cusp Separation MM 1.6 cm DOPPLER AV Peak Velocity 137.8 cm/s AV Peak Gradient 7.6 mmHg AV Mean Velocity 78.6 cm/s AV Mean Gradient 2.9 mmHg AV Velocity Time Integral 27.5 cm LVOT Peak Velocity 71.8 cm/s LVOT Peak Gradient 2.1 mmHg LVOT Velocity Time Integral 17.9 cm MV Area PHT 2.3 cm??? Mitral E Point Velocity 111.3 cm/s Mitral A Point Velocity 62.1 cm/s Mitral E to A Ratio 1.8 MV Deceleration Time 333.3 ms MV E' Velocity 7.9 cm/s Mitral E to MV E' Ratio 14.0 TR Peak Velocity 215.6 cm/s TR Peak Gradient 18.6 mmHg Right Ventricular Systolic Press 22.3 mmHg FINDINGS Left Ventricle Mildly increased left ventricular wall thickness. Left ventricular cavity size normal. Normal left ventricular systolic function with no obvious regional wall motion abnormalities. Left ventricular ejection fraction is estimated at 55 %. Right Ventricle Normal right ventricular size and function. Right ventricular systolic pressure within normal limits. Right Atrium Normal right atrial size. Left Atrium Normal left atrial size. Mitral Valve Structurally normal mitral valve. Mitral valve thickened. Mild mitral annular calcification. [id number] mitral regurgitation. Aortic Valve Trileaflet aortic valve. No aortic valve stenosis or regurgitation. Aortic valve sclerosis. Tricuspid Valve Mild tricuspid regurgitation. Pulmonic Valve Trace pulmonic regurgitation. Pericardium No pericardial effusion. Aorta Normal size aortic root and proximal ascending aorta. CONCLUSIONS Left ventricular ejection fraction 55% Mildly increased left ventricular wall thickness Mild mitral calcification Mild to moderate mitral regurgitation Mild tricuspid regurgitation Previewed by: Dr. Venancio Harden DO (Electronically Signed) Final Date: 29 October 2022 09:32
== END | disposition home or self-care (01) ==
LOC: RADECHMAIN 15:11
PROVIDERS: ATTEND Internal Medicine Interventional Cardiology
DX: I08.1 Rheumatic disorders of both mitral and tricuspid valves (principal); I48.0 Paroxysmal atrial fibrillation
CPT/HCPCS: 93306

== ENCOUNTER → 2023-11-09 | Outpatient (CLI) | payer MEDICARE ==
--- NOTE | 2023-11-10 13:46 | MM ---
Reason for Exam: Screening (asymptomatic). Last screening mammogram was performed 12 month(s) ago. Patient History: Menarche at age 12. Patient has no children. Postmenopausal. Breast cancer, right, age 75. Previous LCIS pathology result at age 56. Previous chest radiation therapy at age 75. Patient used Estrogen for 1 year. Core Biopsy on the Left side. Lumpectomy on the Left side. 04/04/2016, Malignant Core Biopsy on the right side. 02/25/2016, Malignant Core Biopsy on the right side. 04/15/2002, Benign Stereotactic Core Biopsy on the left side. 02/10/1997, High risk Excisional Biopsy on the left side. 2016, Radiation Therapy on the right side. Prior Study Comparison: 10/05/2020 Bilateral Diagnostic Mammogram, [facility]. 10/07/2021 Bilateral MG 3D diag mammo w/cad [facility], [facility]. 11/07/2022 Bilateral MG 3D diag mammo w/cad CONRADO, [facility]. Tissue Density: There are scattered areas of fibroglandular density. Findings: Analyzed By CAD. Right breast surgical clips. Right breast: There is no suspicious group of microcalcifications or new suspicious mass. Benign-appearing calcifications right breast. Left breast: There is no suspicious group of microcalcifications or new suspicious mass. Overall Assessment: Benign, BI-RAD 2 Management: Screening Mammogram of both breasts in [address] [facility] will attempt to contact patient to return for supplemental views and ultrasound if indicated. Patient should continue monthly self-breast exams. A clinical breast exam by your physician is recommended on an annual basis. This exam should not preclude additional follow-up of suspicious palpable abnormalities. Note on Ella scores and lifetime risk: 1. A Ella score greater than 3% is considered moderate risk. If this is the case, consider specialist referral to assess eligibility for a risk reducing agent. 2. If overall lifetime risk for the development of breast cancer is 20% or higher, the patient may qualify for future screening with alternating mammogram and breast MRI. [facility], , 11/10/2023 1:42 PM. Electronically signed and approved by: Cuco Patel DO
== END | disposition home or self-care (01) ==
LOC: RADMAMWWP 13:24
PROVIDERS: ATTEND Family Medicine
DX: Z12.31 Encounter for screening mammogram for malignant neoplasm of breast
CPT/HCPCS: 77063; 77067

== ENCOUNTER → 2024-01-28 | Outpatient (CLI) | payer MEDICARE ==
[2024-01-28 19:21] LABS: HCT 42.7 % (37.2-46.3); HGB 13.6 g/dL (12.0-15.0); MCH 31.7 pg (27.0-32.0); MCHC 31.9 g/dL (32.0-37.0); MCV 99.5 FL (80.0-97.0); Mean Platelet Volume 10.9 FL (9.5-12.2); NRBC Per 100 WBC 0 X 10*3/uL (0.00-0.01); Platelet Count 272 X 10*3/uL (140-440); RBC 4.29 X 10*6/uL (4.10-5.20); RDW 13.4 % (11.5-14.5); WBC 7.54 X 10*3/uL (4.50-10.00)
[2024-01-28 21:13] LABS: Blood Urea Nitrogen 21.1 mg/dL (9.0-27.0); Carbon Dioxide 25.8 mmol/L (21.6-31.8); Chloride 105 mmol/L (96-109); Potassium 4.6 mmol/L (3.5-5.5); Sodium 143 mmol/L (135-145)
== END | disposition home or self-care (01) ==
LOC: LABWHC1 11:39
PROVIDERS: ATTEND Internal Medicine
DX: Z01.818 Encounter for other preprocedural examination (principal); I48.11 Longstanding persistent atrial fibrillation; I45.81 Long QT syndrome
CPT/HCPCS: 36415; 80051; 82565; 84520; 85027